=== PATIENT | female | born 1985 | race Caucasian/White ===

== ENCOUNTER 2017-06-15 05:36 | Outpatient (CLI) | payer OTHER ==
[~2017-06-15] VITALS: Ht 149.9 cm; Wt 73.5 kg
[2017-06-15 06:24] VITALS: BP 116/63
[2017-06-15] MEDS ORDERED: PRENTAB9 PO (16:38)
[2017-06-15] MEDS ORDERED: COLA100C5 PO (16:38)
[2017-06-15] MEDS ORDERED: VALT500T PO (16:38)
== END 2017-06-15 07:02 | disposition home or self-care (01) ==
LOC: M LDO 05:36
PROVIDERS: ATTEND Obstetrics & Gynecology
DX: O47.1 False labor at or after 37 completed weeks of gestation (principal); Z3A.40 40 weeks gestation of pregnancy

== ENCOUNTER 2017-06-15 13:58 | Inpatient (IN) | payer OTHER ==
[~2017-06-15] VITALS: Ht 149.9 cm; Wt 74.0 kg
[2017-06-15] MEDS ORDERED: LACTATED RINGER'S 1000 ML IV STA (15:16)
[2017-06-15 15:55] LABS: WHITE BLOOD COUNT 12.2 K/mm3 (4.0-10.0)
[2017-06-15 15:56] LABS: MEAN CORPUSCULAR HEMOGLOBIN 33.1 pg (27.0-33.0); MEAN CORPUSCULAR HGB CONC 34.4 g/dl (32.0-36.5); RED CELL DISTRIBUTION WIDTH 13.4 % (11.5-14.5)
[2017-06-15] MEDS ORDERED: CALCIUM CARBONATE 500 MG CHEW U/D PO PRN (16:15)
[2017-06-15] MEDS ORDERED: PRENTAB9 PO (16:38)
[2017-06-15] MEDS ORDERED: COLA100C5 PO (16:38)
[2017-06-15] MEDS ORDERED: VALT500T PO (16:38)
[2017-06-15] MEDS ORDERED: FENTANYL 2MCG/ML ROPIVACAINE 0.2% IN 0.9% NACL 200ML IVBAG As Ordered ONE (17:05)
[2017-06-15] MEDS ORDERED: REFRIGERATOR IV KEYS XX PRN (18:15)
[2017-06-15] MEDS ORDERED: diphenhydrAMINE INJ 50MG/ML VIAL (J1200) IV PRN (18:15)
[2017-06-15] MEDS ORDERED: ONDANSETRON 4MG/2ML VIAL (J2405) IV PRN ×2 (18:15→20:45)
[2017-06-15] MEDS ORDERED: NALOXONE INJ 0.4 MG/1 ML VIAL (J2310) IV PRN (18:15)
[2017-06-15] MEDS ORDERED: LACTATED RINGER'S 1000 ML IV PRN (18:15)
[2017-06-15] MEDS ORDERED: ePHEDrine SULFATE 25 MG/5 ML(5MG/ML) SYRINGE IV PRN (18:15)
[2017-06-15] MEDS ORDERED: EPIDURAL/PCA KEYS XX PRN (18:15)
[2017-06-15] MEDS ORDERED: EPIDURAL COMMENT XX SCH (18:15)
[2017-06-15] MEDS ORDERED: FENTANYL/ROPIVACAINE/NACL BAG 200 ML EPIDURAL SCH (18:15)
[2017-06-15] MEDS ORDERED: OXYTOCIN 30 UNITS IN 0.9% NaCl 500ML IV BAG (J2590) As Ordered ONE (19:15)
[2017-06-15] MEDS ORDERED: PROMETHAZINE 25 MG TAB PO PRN (20:45)
[2017-06-15] MEDS ORDERED: DIBUCAINE 1% OINTMENT 30GM TOP PRN (20:45)
[2017-06-15] MEDS ORDERED: METHYLERGONOVINE MALEATE 0.2 MG/ML VIAL (J2210) IM PRN (20:45)
[2017-06-15] MEDS ORDERED: RHOGAM 300 MCG (1500 IU) INJ (J2790) IM SCH (20:45)
[2017-06-15] MEDS ORDERED: MEASLES,MUMPS,RUBELLA VACCINE INJ (MMR-II) (90707) SC SCH (20:45)
[2017-06-15] MEDS ORDERED: OXYTOCIN DRIP 30 UNITS in APPROPRIATE DILUENT 1 EA IV SCH (20:45)
[2017-06-15] MEDS: IBUPROFEN 800 MG TAB PO PRN (21:26)
[2017-06-15 22:00] VITALS: BP 119/61
[2017-06-15] MEDS: DOCUSATE SODIUM 100 MG CAP PO SCH (23:33)
[2017-06-16] MEDS: ACETAMINOPHEN 500 MG TAB PO PRN ×3 (02:07→22:08)
[2017-06-16] MEDS: CALCIUM CARBONATE 500 MG CHEW U/D PO PRN ×2 (02:31→20:04)
[2017-06-16 06:00] VITALS: BP 104/56
[2017-06-16] MEDS: PRENATAL VITAMINS CHEWABLE TABLET PO SCH (08:15)
[2017-06-16] MEDS: DOCUSATE SODIUM 100 MG CAP PO SCH ×2 (08:15→20:12)
[2017-06-16] MEDS: IBUPROFEN 800 MG TAB PO PRN ×2 (08:16→15:39)
[2017-06-16 17:57] VITALS: BP 107/57
[2017-06-16 18:59] LABS: MEAN CORPUSCULAR HEMOGLOBIN 33.8 pg (27.0-33.0)
[2017-06-16] MEDS: AMPICILLIN SOD/SULBACTAM SOD 3 GM in D5W MINI-BAG PLUS 100 ML IV SCH (19:08)
[2017-06-16 21:55] VITALS: BP 111/59
[2017-06-17] MEDS: IBUPROFEN 800 MG TAB PO PRN ×3 (00:43→21:39)
[2017-06-17] MEDS: AMPICILLIN SOD/SULBACTAM SOD 3 GM in D5W MINI-BAG PLUS 100 ML IV SCH ×4 (00:44→18:29)
[2017-06-17 02:12] VITALS: BP 105/57
[2017-06-17 05:35] VITALS: BP 113/58
[2017-06-17] MEDS: PRENATAL VITAMINS CHEWABLE TABLET PO SCH (08:49)
[2017-06-17] MEDS: DOCUSATE SODIUM 100 MG CAP PO SCH ×2 (08:49→21:38)
[2017-06-17] MEDS ORDERED: INFLUENZA QUADRIVALENT PF VACCINE 0.5ML SYRINGE (90686) IM ONE (09:00)
[2017-06-17 10:22] VITALS: BP 107/52
[2017-06-17 14:40] VITALS: BP 107/55
--- NOTE | 2017-06-17 15:10 | IPN ---
DATE: 06/17/2017 day #1. This lady is a 32-year-old, 4 now para 3, admitted in labor at 40 and one weeks' of gestation, spontaneous vaginal delivery of female, 7 pounds 9 ounces, 3420 grams, scores of 9 and 9 at 1 and 5 minutes, respectively. On her first day, we discussed phlebitis, cystitis, mastitis, endometritis, cellulitis, diet, exercise, pain management, perineal, breast and wound care. She will discuss control at follow-up at her 6 week checkup. Her hemoglobin admitting was 13.2, hematocrit 38.3 and platelets 164. day #1 hemoglobin 14.0, hematocrit 38.8 and platelets are 149. Her vital signs today are blood pressure 107/52, respirations 18, pulse 78, temperature is 97.6. The rest of the examination is unremarkable. She is normocephalic, atraumatic. Neck full range of motion. Pupils equal and reactive to light. Distal pulses symmetric. No evidence of DVT, PE or superficial phlebitis. Chest is clear bilaterally to bases. No wheezes or rhonchi. No CVA tenderness. Abdomen is soft, uterus two below, four quadrant bowel sounds and first degree repair is healing well. She has no rashes, lesions, pruritus. No arthralgia, myalgia. No complaints of cough, wheeze, shortness of breath or dyspnea on exertion. Not bleeding. Neurologically complete. No incontinency, urgency or frequency. No nausea, vomiting, diarrhea or constipation. No diabetic issues. In summary we have a term gestation who delivered a live female infant. PLAIN: Discharge is for tomorrow with medications and 6-week checkup. At that time we will discuss control method.
[2017-06-17 18:03] VITALS: BP 98/51
[2017-06-17 22:00] VITALS: BP 111/58
[2017-06-18] MEDS: AMPICILLIN SOD/SULBACTAM SOD 3 GM in D5W MINI-BAG PLUS 100 ML IV SCH ×2 (01:18→06:53)
[2017-06-18 02:15] VITALS: BP 116/56
[2017-06-18] MEDS: ACETAMINOPHEN 500 MG TAB PO PRN (03:24)
[2017-06-18] MEDS: IBUPROFEN 800 MG TAB PO PRN (05:33)
[2017-06-18 06:30] VITALS: BP 108/57
[2017-06-18] MEDS: DOCUSATE SODIUM 100 MG CAP PO SCH (08:24)
[2017-06-18] MEDS: PRENATAL VITAMINS CHEWABLE TABLET PO SCH (08:24)
[2017-06-18] MEDS ORDERED: ACET50TA PO (09:13)
[2017-06-18] MEDS ORDERED: ADVI200C5 PO (09:14)
[2017-06-18] MEDS ORDERED: MOTR200T44 PO (09:15)
[2017-06-18] MEDS ORDERED: DIBU10OI TOP (09:20)
--- NOTE | 2017-06-18 10:12 | DSES ---
DATE OF ADMISSION: 06/15/2017 DATE OF DISCHARGE: This lady is a 32-year-old, 4, now para 3, who came in, in spontaneous labor, at 41 weeks of gestation. Spontaneous delivery of a female, 7 pounds 9 ounces, 3420 grams. 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 Her admitting hemoglobin was 13.2, hematocrit 38.3 and platelets 164. Discharge hemoglobin 14.0, hematocrit 38.4 and platelets 149. Her vital signs are her blood pressure is 116/56, respirations 18, pulse 66, temperature 97.7. She had only one elevated temperature throughout the entire time and it was 101.9. The rest the examination is unremarkable. She is normocephalic, atraumatic. Neck full range of motion. Pupils equal and reactive to light. Lymph nodes are negative. Throat is negative. Dental is negative. Her distal pulses are symmetric. Chest is clear bilaterally at bases. No wheezes or rhonchi. No costovertebral angle (CVA) tenderness. Uterus two below. Lochia is moderate. Perineum is healing. No rashes, lesions or pruritus. No arthralgia or myalgia. No complaints of cough, wheeze, shortness breath or dyspnea on exertion. No chest pain. No bleeding. Neuro complete. No urgency, frequency, nausea, vomiting, diarrhea, or constipation. No diabetic issues. She has no medical issues outside of what we discussed. She does not smoke, drink or abuse drugs. and there is no domestic violence. Has good support at her home. In summary, we have a term gestation who delivered a live female and discharged. Followup appointment 6 weeks with Carlos Enrique JARRETT. Has her medications at discharge.
== END 2017-06-18 11:55 | disposition home or self-care (01) | DRG 774 ==
LOC: M LDO 13:58 → M LDI 14:46 → M OBS 22:00
PROVIDERS: ADMIT Obstetrics & Gynecology; ATTEND Obstetrics & Gynecology
PROC: 10E0XZZ Delivery of Products of Conception, External Approach (ICD-10-PCS; principal; 2017-06-15)
PROC: 0HQ9XZZ Repair Perineum Skin, External Approach (ICD-10-PCS; 2017-06-15)
DX: O48.0 Post-term pregnancy (principal); O86.4 Pyrexia of unknown origin following delivery; Z37.0 Single live birth; Z3A.40 40 weeks gestation of pregnancy; Z98.82 Breast implant status; Z79.899 Other long term (current) drug therapy; O70.0 First degree perineal laceration during delivery

== ENCOUNTER 2018-12-09 09:19 | Emergency (ER) | payer OTHER ==
[~2018-12-09] VITALS: Ht 149.9 cm; Wt 61.3 kg
[~2018-12-09 09:19] MED LIST: ADVI200C5 PO; COLA100C5 PO; DIBU10OI TOP; MAPA500T2 PO; MOTR200T44 PO; PRENTAB9 PO; VALT500T PO
[2018-12-09] MEDS ORDERED: ZOLO50TA (09:33)
[2018-12-09 10:03] LABS: BASO # 0.1 10^3/uL (0.0-0.2); BASO % 0.5 % (0.0-1.0); EOS # 0.2 10^3/uL (0.0-0.50); EOS % 2.5 % (0.0-3.0); HEMATOCRIT 38.1 % (36.0-47.0); HEMOGLOBIN 12.9 g/dl (12.0-15.5); LYMPH # 1.7 10^3/uL (1.5-4.5); LYMPH % 17.3 % (24.0-44.0); MEAN CORPUSCULAR HEMOGLOBIN 30.8 pg (27.0-33.0); MEAN CORPUSCULAR HGB CONC 33.9 g/dl (32.0-36.5); MEAN CORPUSCULAR VOLUME 90.9 fl (80.0-96.0); MONO # 0.6 10^3/uL (0.0-0.8); MONO % 5.9 % (0.0-5.0); NEUTROPHILS # 7.1 10^3/uL (1.8-7.7); NEUTROPHILS % 73.7 % (36.0-66.0); PLATELET COUNT, AUTOMATED 259 10^3/uL (150-450); RED BLOOD COUNT 4.19 10^6/uL (4.00-5.40); WHITE BLOOD COUNT 9.6 10^3/uL (4.0-10.0)
[2018-12-09] MEDS ORDERED: NS 1,000 ML IV ONE (10:30)
[2018-12-09] MEDS ORDERED: ONDANSETRON 4MG/2ML VIAL (J2405) IV ONE (10:30)
[2018-12-09] MEDS ORDERED: KETOROLAC 30 MG/ML VIAL (J1885) IV ONE (10:30)
[2018-12-09 10:41] LABS: HCG, SERUM QUALITATIVE NEGATIVE (NEGATIVE)
[2018-12-09 10:46] LABS: BLOOD UREA NITROGEN 12 MG/DL (7-18); CALCIUM LEVEL 8.7 MG/DL (8.5-10.1); CARBON DIOXIDE LEVEL 27 MEQ/L (21-32); CHLORIDE LEVEL 106 MEQ/L (98-107); CREATININE FOR GFR 0.58 MG/DL (0.55-1.30); GLOMERULAR FILTRATION RATE > 60.0 (>60); GLUCOSE, FASTING 91 MG/DL (70-100); MAGNESIUM LEVEL 2.2 MG/DL (1.8-2.4); POTASSIUM SERUM 3.8 MEQ/L (3.5-5.1); SODIUM LEVEL 138 MEQ/L (136-145)
--- NOTE | 2018-12-09 11:24 | REP ---
CT Head without contrast HISTORY: Head injury COMPARISON: None There is no intraparenchymal hemorrhage, acute infarct, mass or midline shift. The ventricular system is normal in appearance. There is no extra cerebral collection. There is no fracture. The visualized sinuses are clear. IMPRESSION: There is no intracranial lesion. Electronically Signed by Rick Spain MD 12/09/2018 11:16 A
[2018-12-09 12:30] VITALS: BP 104/62
[2018-12-09] MEDS ORDERED: ONDA4TAB6 PO (12:40)
--- NOTE | 2018-12-09 15:33 | ECGEPIP ---
Stationary ECG Study [facility] - ED Test Date: 2018-12-09 Pat Name: ELIAS LINDSEY Department: Room: - Gender: F [employer] Operator: : 1985 Requested By: Sharron Covington Order Number: [id number] Reading MD: Carloz Durán Measurements Intervals Admire Rate: 71 P: 51 CT: 145 QRS: 54 QRSD: 96 T: 40 QT: 389 QTc: 423 Interpretive Statements SINUS RHYTHM NO PRIORS FOR COMPARISON Electronically Signed On 12-09-2018 15:33:06 EDT by Carloz Durán
== END 2018-12-09 12:44 | disposition home or self-care (01) ==
LOC: M ED 09:19
DX: R55 Syncope and collapse (principal); F32.9 Major depressive disorder, single episode, unspecified; Z79.899 Other long term (current) drug therapy
CPT/HCPCS: 70450; 80048; 83735; 84443; 84703; 85025; 93005; 93041; 94760; 96374; 96375; 99285; J1885; J2405

== ENCOUNTER → 2019-01-19 | Outpatient (REF) | payer OTHER ==
[~2019-01-19] MED LIST changes: +ONDA4TAB6 PO; +ZOLO50TA
== END ==
LOC: M SFHCLERA 13:01
PROVIDERS: ATTEND Physician Assistant
DX: J02.9 Acute pharyngitis, unspecified (principal)

== ENCOUNTER → 2019-06-21 | Outpatient (REF) | payer OTHER | LOC: M SFHCLERA 11:14 | PROVIDERS: ATTEND Physician Assistant | DX: R10.31 Right lower quadrant pain (principal) ==

== ENCOUNTER → 2019-06-21 | Outpatient (CLI) | payer OTHER ==
--- NOTE | 2019-06-21 13:30 | REP ---
SUPINE ABDOMEN: 06/21/2019. Clinical history: Abdominal pain and low back pain. Findings: No prior study. There is no abnormal calcifications suggested over the renal fossae or expected course of the ureters. No pelvic calcifications. Gas pattern is nonspecific without signs of obstruction, mass or dilated loops. No focal bone lesion or other acute finding. Impression: 1. Negative supine abdomen for stone, obstruction, mass or other significant finding. No constipation by plain x-ray. Electronically Signed by Oumar Day MD 06/21/2019 07:38 P
== END ==
LOC: M LRY 11:07
PROVIDERS: ATTEND Physician Assistant
DX: R10.31 Right lower quadrant pain (principal)
CPT/HCPCS: 74018; 81002; 81025; 87086; G0463

== ENCOUNTER → 2019-09-02 | Outpatient (CLI) | payer OTHER ==
--- NOTE | 2019-09-02 16:05 | REP ---
Right a long finger series: Four views. History: Pain after injury. Findings: There is diffuse soft tissue swelling over the middle phalanx and at the DIP joint. There is no evidence of fracture, subluxation, soft tissue gas, or opaque foreign body. Impression: Soft-tissue swelling. No fracture seen. Electronically Signed by Aidan Morrell MD 09/02/2019 03:56 P
== END ==
LOC: M LRY 15:44
PROVIDERS: ATTEND Nurse Practitioner Family
DX: S67.192A Crushing injury of right middle finger, initial encounter (principal); X58.XXXA Exposure to other specified factors, initial encounter; Y92.9 Unspecified place or not applicable; Y93.9 Activity, unspecified; Y99.9 Unspecified external cause status
CPT/HCPCS: 73140; 90471; 90715; G0463

== ENCOUNTER 2019-10-08 08:42 | Day surgery (SDC) | payer OTHER ==
[~2019-10-08] VITALS: Ht 149.9 cm; Wt 59.9 kg
[~2019-10-08 08:42] MED LIST changes: +D 202000 PO; +FISH1000 PO; +MULTTAB4 PO; +NS 1,000 ML IV ONE; -ZOLO50TA; +ZOLO50TA PO
[2019-10-08] MEDS ORDERED: propofoL 200 MG/20 ML VIAL As Ordered ONE ×2 (09:47→10:17)
[2019-10-08] MEDS ORDERED: LIDOCAINE 2% INJ 100 MG/5 ML SDV (FOR ANES.) As Ordered ONE (09:47)
--- NOTE | 2019-10-08 10:03 | ROOR ---
Patient Name: Jazmin Whitley Procedure Date: 10/08/2019 9:48 AM Date of : 1985 Age: 34 Room: [facility] Gender: Female Note Status: Finalized Procedure: Upper Endoscopy + Biopsies Indications: Nausea with vomiting Providers: Judd Mcgregor MD Referring MD: BOOGIE HYMAN MD Requesting Provider: Medicines: Monitored Anesthesia Care Complications: No immediate complications. Procedure: Pre-Anesthesia Assessment: - The heart rate, respiratory rate, oxygen saturations, blood pressure, adequacy of pulmonary ventilation, and response to care were monitored throughout the procedure. The Endoscope was introduced through the mouth, and advanced to the second part of duodenum. The upper GI endoscopy was accomplished without difficulty. The patient tolerated the procedure well. Findings: The Z-line was regular and was found 40 cm from the incisors. Multiple biopsies were obtained with cold forceps for evaluation to rule out Childs's Esophagus randomly at the gastroesophageal junction. No other significant abnormalities were identified in a careful examination of the stomach. Biopsies were taken with a cold forceps in the gastric antrum for Helicobacter pylori testing. The exam of the duodenum was otherwise normal. Impression: - Z-line regular, 40 cm from the incisors. - Multiple biopsies were obtained at the gastroesophageal junction. - Biopsies were taken with a cold forceps for Helicobacter pylori testing. - The examination was otherwise normal. Recommendation: - Patient has a contact number available for emergencies. The signs and symptoms of potential delayed complications were discussed with the patient. Return to normal activities tomorrow. Written discharge instructions were provided to the patient. - High fiber diet. - Discharge patient to home. - Continue present medications. - Await pathology results. - Telephone GI clinic for pathology results in 1 week. - Return to referring physician. - The findings and recommendations were discussed with the patient's family. Judd Mcgregor MD Judd Mcgregor MD 10/08/2019 10:03:39 AM Electronically signed by Judd Mcgregor MD Number of Addenda: 0 Note Initiated On: 10/08/2019 9:48 AM Estimated Blood Loss: Estimated blood loss: none.
--- NOTE | 2019-10-08 10:21 | ROOR ---
Patient Name: Jazmin Whitley Procedure Date: 10/08/2019 9:48 AM Date of : 1985 Age: 34 Room: [facility] Gender: Female Note Status: Finalized Procedure: Total Colonoscopy to Cecum + ileoscopy + Bx Indications: Change in bowel habits Providers: Judd Mcgregor MD Referring MD: BOOGIE HYMAN MD Requesting Provider: Medicines: Monitored Anesthesia Care Complications: No immediate complications. Procedure: Pre-Anesthesia Assessment: - The heart rate, respiratory rate, oxygen saturations, blood pressure, adequacy of pulmonary ventilation, and response to care were monitored throughout the procedure. The Colonoscope was introduced through the anus and advanced to the terminal ileum, with identification of the appendiceal orifice and IC valve. The colonoscopy was performed without difficulty. The patient tolerated the procedure well. The quality of the bowel preparation was excellent. Findings: The perianal and digital rectal examinations were normal. Non-bleeding internal hemorrhoids were found during retroflexion. The hemorrhoids were small and Grade I (internal hemorrhoids that do not prolapse). No other significant abnormalities were identified in a careful examination of the remainder of the colon. The terminal ileum appeared normal. No other significant abnormalities were identified in a careful examination of the remainder of the colon. Biopsies for histology were taken with a cold forceps from the ascending colon, transverse colon and descending colon for evaluation of microscopic colitis. The exam was otherwise without abnormality. Impression: - Non-bleeding internal hemorrhoids. - The examined portion of the ileum was normal. - The examination was otherwise normal. - Biopsies were taken with a cold forceps from the ascending colon, transverse colon and descending colon for evaluation of microscopic colitis. - The exam was otherwise normal to the cecum. Recommendation: - Patient has a contact number available for emergencies. The signs and symptoms of potential delayed complications were discussed with the patient. Return to normal activities tomorrow. Written discharge instructions were provided to the patient. - High fiber diet. - Discharge patient to home. - Continue present medications. - Repeat colonoscopy in 10 years for screening purposes. - Return to referring physician. - The findings and recommendations were discussed with the patient's family. Judd Mcgregor MD Judd Mcgregor MD 10/08/2019 10:20:46 AM Electronically signed by Judd Mcgregor MD Number of Addenda: 0 Note Initiated On: 10/08/2019 9:48 AM Estimated Blood Loss: Estimated blood loss: none.
[2019-10-08 10:50] VITALS: BP 101/55
== END 2019-10-08 12:05 | disposition home or self-care (01) ==
LOC: M OPP 08:42
PROVIDERS: ATTEND Internal Medicine Gastroenterology
DX: K64.0 First degree hemorrhoids (principal); R19.4 Change in bowel habit; R11.2 Nausea with vomiting, unspecified; R12 Heartburn; Z79.899 Other long term (current) drug therapy